=== PATIENT | female | born 1960 | race Caucasian/White ===

== ENCOUNTER 2017-10-13 19:47 | Emergency (ER) | payer MEDICAID ==
[2017-10-13 19:47] VITALS: BMI 23.0
[2017-10-13 20:58] VITALS: BP 129/69; PULSE 81; RESP 20; TEMP 98.6; O2SAT 98
--- NOTE | 2017-10-13 21:42 | C.PDOC ---
History Of Present Illness 57 yo female come in for evaluation of nasal congestion, runny nose, watery eyes , myalgia gradually developed since today AM. Otherwise, pt denies high fever, headache, dizziness, drooling, visual changes, eye redness. neck pain, cough, CP , SOB, dyspnea, diaphoresis, palpitation, abd. pain, N/V/D, UTi sx. Ambulate to Ed for evaluation, not in any apparent distress. Time Seen by Provider: 10/13/17 21:28 Chief Complaint (Nursing): Cough, Cold, Congestion History Per: Patient History/Exam Limitations: no limitations Onset/Duration Of Symptoms: Hrs, Gradual Current Symptoms Are (Timing): Still Present Additional History Per: Patient Past Medical History Reviewed: Historical Data, Nursing Documentation, Vital Signs Vital Signs: Last Vital Signs Temp 98.6 F 10/13/17 20:53 Pulse 81 10/13/17 20:53 Resp 20 10/13/17 20:53 BP 129/69 10/13/17 20:53 Pulse Ox 98 10/13/17 21:50 - Medical History PMH: HTN, Hypercholesterolemia Denies: Chronic Kidney Disease Surgical History: No Surg Hx - [facility] Procedures LOC EXC BONE LESION NEC (05/25/15) REPAIR OF HAMMER TOE (05/25/15) Family History: States: Unknown Family Hx - Social History Hx Tobacco Use: No Hx Alcohol Use: No Hx Substance Use: No - Immunization History Hx Tetanus Toxoid Vaccination: No Hx Influenza Vaccination: No Hx Pneumococcal Vaccination: No Review Of Systems Except As Marked, All Systems Reviewed And Found Negative. Constitutional: Positive for: Other (myalgia ). Negative for: Fever Eyes: Positive for: Other (watery eyes). Negative for: Vision Change, Redness ENT: Positive for: Nose Discharge, Nose Congestion. Negative for: Other ( drooling ) Cardiovascular: Negative for: Chest Pain, Palpitations Respiratory: Negative for: Cough, Shortness of Breath, SOB with Excertion Gastrointestinal: Negative for: Nausea, Vomiting, Abdominal Pain, Diarrhea Genitourinary: Negative for: Dysuria, Frequency Musculoskeletal: Negative for: Neck Pain Skin: Negative for: Rash Neurological: Negative for: Weakness, Numbness, Altered Mental Status, Headache , Dizziness Physical Exam - Physical Exam Appears: Well, Non-toxic, No Acute Distress Skin: Normal Color, Warm, Dry, No Rash Eye(s): bilateral: PERRL, EOMI Ear(s): Bilateral: Normal Nose: No Flaring, Discharge Tongue: Normal Appearing Lips: Normal Appearing Throat: No Erythema, No Drooling Neck: Trachea Midline, Supple Cardiovascular: Rhythm Regular, No Murmur Respiratory: No Decreased Breath Sounds, No Accessory Muscle Use, No Stridor, No Wheezing Gastrointestinal/Abdominal: Soft, No Tenderness, No Distention, No Guarding Extremity: Normal ROM, No Deformity, No Swelling Neurological/Psych: Oriented x3, Normal Speech ED Course And Treatment O2 Sat by Pulse Oximetry: 98 (on RA) Pulse Ox Interpretation: Normal Progress Note: Benadryl PO and Prednisone PO administered. On re-evaluation, pt is awake, alert, not in any apparent distress. PulsEOx 98% rA. Non-toxic, tolerate Po well in ED. ENT: no acute findings. Neck: Supple, (-) meningeal sign. Lungs: CTA B/L, Bs equal B/L. Abd:benign, (-) guarding, (-) rebound. Neuorlogicaly intact. Pt has clinical findings c/w viral illness. Pt advised. ref. to f/u with PMD in 2-3 days for re-eval. return to ED if any worsening or new changes. Disposition Counseled Patient/Family Regarding: Diagnosis, Need For Followup, Rx Given - Disposition Referrals: [facility] [Outside] Disposition: HOME/ ROUTINE Disposition Time: 21:40 Condition: STABLE Additional Instructions: Encourage fluids take medication as prescribed Follow up with PMD in 2-3 days for re-evaluation. return to Ed if any worsening or new changes. Prescriptions: Albuterol HFA [Ventolin HFA 90 mcg/actuation (8 g)] 1 puff IH Q6 #1 inhaler Loratadine [Claritin] 10 mg PO DAILY #20 tab Oseltamivir Phosphate [Tamiflu] 75 mg PO BID #10 capsule Prednisone [Deltasone] 40 mg PO DAILY #6 tablet Instructions: Upper Respiratory Infection (ED) Forms: [employer] (Nepali) Print Language: SERBIAN - Clinical Impression Clinical Impression: Upper respiratory infection - PA / CASH CLERK / Resident Statement MD/DO has reviewed & agrees with the documentation as recorded. - Scribe Statement The provider has reviewed the documentation as recorded by the Scribe (Lou Brannon) All medical record entries made by the Butch were at my direction and personally dictated by me. I have reviewed the chart and agree that the record accurately reflects my personal performance of the history, physical exam, medical decision making, and the department course for this patient. I have also personally directed, reviewed, and agree with the discharge instructions and disposition.
== END 2017-10-13 22:17 | disposition home or self-care (01) ==
LOC: C.ER 19:47
DX: J06.9 Acute upper respiratory infection, unspecified (principal)

== ENCOUNTER 2018-10-07 13:57 | Emergency (ER) | payer SELFPAY ==
[2018-10-07 13:57] VITALS: BMI 23.0
[2018-10-07 14:12] VITALS: BP 140/81; PULSE 98; RESP 20; TEMP 98.6; O2SAT 99
--- NOTE | 2018-10-07 14:15 | C.PDOC ---
History Of Present Illness 58 y/o female presents to the ER for medical evaluation of left foot pain which has been present for the past 1 week. Patient states that she dropped her phone on her foot. Patient reports that she hoped that the pain would improve; however, she the pain persisted. She notes that she has been taking Motrin and using ice therapy without much relief. She is ambulating with limp. Denies having parasthesias, fever, chills, headache, dizziness, CP, SOB, nausea, and vomiting. Chief Complaint (Nursing): Lower Extremity Problem/Injury History Per: Patient History/Exam Limitations: no limitations Onset/Duration Of Symptoms: Days Current Symptoms Are (Timing): Still Present Severity: Moderate Past Medical History Reviewed: Historical Data, Nursing Documentation, Vital Signs - Medical History PMH: HTN, Hypercholesterolemia Denies: Chronic Kidney Disease Other Surgeries: Hx of surgeries - [facility] Procedures LOC EXC BONE LESION NEC (05/25/15) REPAIR OF HAMMER TOE (05/25/15) Family History: States: No Known Family Hx - Social History Hx Tobacco Use: No Hx Alcohol Use: No Hx Substance Use: No - Immunization History Hx Tetanus Toxoid Vaccination: No Hx Influenza Vaccination: No Hx Pneumococcal Vaccination: No Review Of Systems Except As Marked, All Systems Reviewed And Found Negative. Constitutional: Negative for: Fever, Chills Cardiovascular: Negative for: Chest Pain Respiratory: Negative for: Shortness of Breath Gastrointestinal: Negative for: Nausea, Vomiting Musculoskeletal: Positive for: Foot Pain (left foot pain) Neurological: Negative for: Weakness, Numbness, Headache, Dizziness Physical Exam - Physical Exam Appears: Non-toxic, No Acute Distress Skin: Normal Color, Warm, Dry Head: Atraumatic, Normacephalic Neck: Normal ROM, Supple Lymphatic: No Adenopathy Chest: Symmetrical Cardiovascular: Rhythm Regular Respiratory: Normal Breath Sounds, No Wheezing Gastrointestinal/Abdominal: Soft, No Tenderness Extremity: Tenderness (tenderness to left foot between 2nd and 4th metatarsals), Capillary Refill (< 2 seconds), Other (edema between 2nd and 4th metatarsals of left foot) Extremity: Left: Limited ROM To Joint (foot), Painful To Bear Weight (foot) Pulses: Left Dorsalis Pedis: Normal, Right Dorsalis Pedis: Normal Neurological/Psych: Oriented x3, Normal Speech, Normal Cognition, Normal Sensation Gait: With Assistance ED Course And Treatment - Other Rad X-Ray-Left Foot X-Ray: Viewed By Me, Read By Radiologist Interpretation: Date of service: 10/07/2018. PROCEDURE: Left Foot Radiographs. HISTORY: s/p trauma. COMPARISON: None. FINDINGS: BONES: No fracture appreciated. Some mild squaring of the 2nd metatarsal head noted evaluation of the phalanges is more limited due to some flexion and super positioning here. Precise site of pain is not specified. Os peroneum noted. JOINTS: Minimal 1st metatarsal-phalangeal joint arthrosis. SOFT TISSUES: Normal. OTHER FINDINGS: [place]'s tendon insetional enesthesophyte. IMPRESS ION: No definitive fracture site noted. Squaring of 2nd metatarsal head can be seen with Freiberg's disease-chronicity inferred. Other findings as above. Medical Decision Making Medical Decision Making: A/P: Left Foot Sprain - no evidence of acute fracture but noted to have chronic findings that should be followed by Podiatry - referred to Dr. Rodrigues - rest, ice, marycarmen bandage, and elevation - start Naproxen 500mg BID prin pain - patient verbalized understanding Disposition Counseled Patient/Family Regarding: Studies Performed, Diagnosis, Need For Followup, Rx Given - Disposition Referrals: Maria Del Rosario Rodrigues DPM [Staff Provider] - Disposition: HOME/ ROUTINE Disposition Time: 15:08 Condition: GOOD Additional Instructions: BEVERLEY WELSH, thank you for letting us take care of you today. Your provider was Zoë Roth PA-C and you were treated for FALL/LT FOOT PAIN. The emergency medical care you received today was directed at your acute symptoms. If you were prescribed any medication, please fill it and take as directed. It may take several days for your symptoms to resolve. Return to the Emergency Department if your symptoms worsen, do not improve, or if you have any other problems. Please contact your doctor or call one of the physicians/clinics you have been referred to that are listed on the Patient Visit Information form that is includ ed in your discharge packet. Bring any paperwork you were given at discharge with you along with any medications you are taking to your follow up visit. Our treatment cannot replace ongoing medical care by a primary care provider outside of the emergency department. Thank you for allowing the [facility] team to be part of your care today. Prescriptions: Ibuprofen [Motrin] 600 mg PO TID PRN #30 tab PRN Reason: Pain, Moderate (4-7) Instructions: Foot Sprain (DC) Forms: [employer] (Iranian) Print Language: MALAGASY - Clinical Impression Clinical Impression: Foot sprain - PA / REFRIGERATION TECHNICIAN / Resident Statement MD/DO has reviewed & agrees with the documentation as recorded. - Scribe Statement The provider has reviewed the documentation as recorded by the Butch Wright Provider Attestation All medical record entries made by the Ricardoibhaylee were at my direction and personally dictated by me. I have reviewed the chart and agree that the record accurately reflects my personal performance of the history, physical exam, medical decision making, and the department course for this patient. I have also personally directed, reviewed, and agree with the discharge instructions and disposition.
--- NOTE | 2018-10-07 14:55 | RAD ---
Date of service: 10/07/2018 PROCEDURE: Left Foot Radiographs. HISTORY: s/p trauma COMPARISON: None. FINDINGS: BONES: No fracture appreciated. Some mild squaring of the 2nd metatarsal head noted evaluation of the phalanges is more limited due to some flexion and super positioning here. Precise site of pain is not specified. Os peroneum noted JOINTS: Minimal 1st metatarsal-phalangeal joint arthrosis SOFT TISSUES: Normal. OTHER FINDINGS: Sangeetha's tendon insetional enesthesophyte. IMPRESSION: No definitive fracture site noted Squaring of 2nd metatarsal head can be seen with Freiberg's disease-chronicity inferred. Other findings as above.
== END 2018-10-07 15:24 | disposition home or self-care (01) ==
LOC: C.ER 13:57
DX: S93.602A Unspecified sprain of left foot, initial encounter (principal); W20.8XXA Other cause of strike by thrown, projected or falling object, initial encounter; E78.00 Pure hypercholesterolemia, unspecified; I10 Essential (primary) hypertension